=== PATIENT | female | born 1995 | race Caucasian/White ===

== ENCOUNTER 2019-02-24 19:05 | Emergency (ER) | payer BC ==
--- NOTE | 2019-02-24 21:14 | EDM.PDOC ---
ED HPI GENERAL MEDICAL PROBLEM - General Chief Complaint: Genitourinary Problem Stated Complaint: AND BLEEDING Time Seen by Provider: 02/24/19 19:05 Source of Information: Reports: Patient, Family History Limitations: Reports: No Limitations - History of Present Illness INITIAL COMMENTS - FREE TEXT/NARRATIVE: 23 y.o. AB0 came to ed due to a vag spotting since this am. Pt has see her OBGYN last week, OBUS was nl at that time. No N/V/D. 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 No trauma. No other acute med issues. BP 110/67 RR 17 Pulse ox 100% on RA Pulse 83 Temp 36.8 Onset Date: 02/24/19 Onset Time: 13:00 Duration: Hour(s): Location: Reports: Pelvis Quality: Reports: Other (vag spotting) Severity: Mild Improves with: Reports: Rest Worsens with: Reports: Movement Context: Reports: Other (13 weeks ) Associated Symptoms: Reports: No Other Symptoms - Related Data Allergies Allergy/AdvReac Type Severity Reaction Status Date / Time dust Allergy Mild unknown Uncoded 02/17/14 19:29 Home Meds: Home Meds NK [No Known Home Meds] 07/25/15 [History] Past Medical History - Past Health History Medical/Surgical History: Denies Medical/Surgical History Respiratory History: Reports: Asthma 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: Neurological History: Reports: Concussion Other Neuro History: had concussion 2 years ago Psychiatric History: Reports: Anxiety Other Psychiatric History: just back on fluoxetine Endocrine/Metabolic History: Reports: Hypoparathyroidism, Other (See Below) Other Endocrine/Metabolic History: underactive thyroid Hematologic History: Reports: Anemia Other Hematologic History: low iron with - Infectious Disease History Infectious Disease History: Reports: None - Past Surgical History Head Surgeries/Procedures: Reports: None Endocrine Surgical History: Reports: None Social & Family History - Family History Family Medical History: Noncontributory - Tobacco Use Smoking Status *Q: Never Smoker - Caffeine Use Caffeine Use: Reports: Coffee Other Caffeine Use: RARELY ED ROS GENERAL - Review of Systems Review Of Systems: See Below Constitutional: Reports: No Symptoms HEENT: Reports: No Symptoms Respiratory: Reports: No Symptoms Cardiovascular: Reports: No Symptoms Endocrine: Reports: No Symptoms GI/Abdominal: Reports: No Symptoms : Reports: No Symptoms Musculoskeletal: Reports: No Symptoms Skin: Reports: No Symptoms Neurological: Reports: No Symptoms Psychiatric: Reports: No Symptoms Hematologic/Lymphatic: Reports: No Symptoms Immunologic: Reports: No Symptoms ED EXAM - Physical Exam Exam: See Below Exam Limited By: No Limitations General Appearance: Alert, WD/WN, No Apparent Distress, Mild Distress Eye Exam: Bilateral Eye: Normal Inspection Ears: Normal External Exam Nose: Normal Inspection Throat/Mouth: Normal Inspection, Normal Lips, Normal Voice, No Airway Compromise Head: Atraumatic, Normocephalic Neck: Normal Inspection, Supple, Non-Tender Respiratory/Chest: No Respiratory Distress, Lungs Clear, Normal Breath Sounds, Chest Non-Tender Cardiovascular: Normal Peripheral Pulses, Regular Rate, Rhythm, No Edema GI/Abdominal Exam: Normal Bowel Sounds, Soft, Non-Tender, No Organomegaly, Pelvis Stable Rectal Exam: Deferred (Female) Exam: Deferred for Placenta Previa Back Exam: Normal Inspection Extremities: Normal Inspection, Normal Range of Motion, Non-Tender, Normal Capillary Refill Neurological: Alert, Oriented, CN II-XII Intact, Normal Cognition, Normal Gait, No Motor/Sensory Deficits Psychiatric: Normal Affect, Normal Mood Skin Exam: Warm, Dry, Intact, Normal Color, No Rash Lymphatic: No Adenopathy Course - Vital Signs Text/Narrative:: 23 y.o. AB0 came to te ed due to a vag spotting since this am. Pt has see her OBGYN last week, OBUS was nl at that time. No N/V/D. 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 No trauma. No other acute med issues. BP 110/67 RR 17 Pulse ox 100% on RA Pulse 83 Temp 36.8 PE: WNWD W F with a h/o miscarriage here for vag spotting Imaging: OB pelvic Sonography: FHT 146, gestation age 13.5 wks, Vag spotting unrelated to as per U/S Boiler Tender, official report is pending Labs: UA pos for 500mg protein and microscopic hematuria. Clean catch. HCG qualitative [id number] Impression: 13.5 weeks with vag spotting Tx: None Reexam: Pt was stable in the ed Plan: D/C with instructions Last Recorded V/S: Last Vital Signs Temp 36.7 C 02/24/19 21:40 Pulse 79 02/24/19 21:40 Resp 17 02/24/19 21:40 BP 102/77 02/24/19 21:40 Pulse Ox 99 02/24/19 21:40 - Orders/Labs/Meds Orders: Active Orders 24 hr Category Date Time Status OB 1st Tri Sgl 1st Gest [US] Stat Exams 02/24/19 21:01 Taken Doppler Heart Tones [[facility]] Stat Oth 02/24/19 19:35 Ordered Labs: Laboratory Tests 02/24/19 02/24/19 Range/Units 19:22 19:45 HCG, Quant 11604 (<5) mIU/mL Urine Color Red (YELLOW) Urine Appearance Turbid (CLEAR) Urine pH 6.0 (5.0-6.5) Ur Specific [place] 1.025 (1.010-1.025) Urine Protein 500 H (NEGATIVE) mg/dL Urine Glucose (UA) Normal (NORMAL) mg/dL Urine Ketones 15 H (NEGATIVE) mg/dL Urine Occult Blood Large H (NEGATIVE) Urine Nitrite Negative (NEGATIVE) Urine Bilirubin Negative (NEGATIVE) Urine Urobilinogen Normal (NEGATIVE) mg/dL Ur Leukocyte Esterase Negative (NEGATIVE) Urine RBC Semi-packed H (0-5) Urine WBC 0-5 (0-5) Ur Squamous Epith Cells Not seen (NS,R,O) Urine Bacteria Rare H (NS) Departure - Departure Time of Disposition: 21:32 Disposition: Home, Self-Care 01 Condition: Good Clinical Impression: Vaginal spotting - Discharge Information Instructions: Vaginal Bleeding During , First Trimester, Vaginal Bleeding During , Second Trimester Referrals: PCP,None [Primary Care Provider] - Forms: ED Department Discharge Additional Instructions: Pelvic rest till seen and evaluated by your PMD this Friday. Tylenol for pain, Please f/u, come back if your symptom get worse acutely. Your 13.5 weeks and your child has a heart tone of 146 per minutes. - My Orders Last 24 Hours: My Active Orders 02/24/19 19:35 Doppler Heart Tones [[facility]] Stat 02/24/19 21:01 OB 1st Tri Sgl 1st Gest [US] Stat - Assessment/Plan Last 24 Hours: My Active Orders 02/24/19 19:35 Doppler Heart Tones [[facility]] Stat 02/24/19 21:01 OB 1st Tri Sgl 1st Gest [US] Stat
[2019-02-24 22:13] VITALS: BP 102/77; PULSE 79
--- NOTE | 2019-02-26 09:11 | US ---
INDICATION: Vaginal bleeding, 13 weeks , history of one miscarriage. OB ULTRASOUND, FIRST TRIMESTER: Multiple ultrasonic images were obtained with transabdominal probe and revealed a single intrauterine gestation with normal amount of amniotic fluid. A regular heart rate of 146 BPM was documented. The cervix was measured at 3.3 cm, appearing unremarkable. The left ovary was not visualized but the right ovary was unremarkable, measuring 2.4 x 2.6 cm. No adnexal mass lesions were demonstrated. The stomach and extremities were documented. The fetus had a crown/rump length compatible with 12 weeks, 6 days gestational age. However, the average ultrasonic gestational age was 13 weeks, 3 days with BPD, HC, AC, and FL measuring, respectively, 14 weeks, 1 day; 13 weeks, 6 days; 13 weeks, 2 days; and 13 weeks. This is in comparison to the LMP GA of 12 weeks, 5 days with the ultrasonic gestational age average less than 1 week ahead of the LMP GA. The placenta is anterior without evidence of previa or abruption. No bleeding site is seen. There is an appearance raising question of bicornuate uterus with endometrial reaction in that portion. 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 MTDD
== END 2019-02-24 21:41 | disposition home or self-care (01) ==
LOC: FB.ED 19:05
DX: O26.851 Spotting complicating pregnancy, first trimester (principal); Z91.09 Other allergy status, other than to drugs and biological substances; J45.909 Unspecified asthma, uncomplicated; Z3A.13 13 weeks gestation of pregnancy
CPT/HCPCS: 36415; 76801; 81001; 84702; 99284-25